=== PATIENT | female | born 1995 | race Caucasian/White ===

== ENCOUNTER → 2019-02-05 | Outpatient (CLI) | payer OTHER ==
[~2019-02-05] MED LIST: ALBU90OI INH; AMOX50SU PO; Amoxicillin500 MG PO; BENZ100A PO; CODACE30 PO; CODACEE120 PO; DIAZ5 PO; GUAI100SY; HYDPAM50 PO; LORA.5 PO; MEDR10 PO; METPHE18ER; METPHE27ER PO; METPRE4DP PO; NITR100CA PO; Naprelan375 MG PO; Naprosyn500 MG PO; PERM5TC TOP; PRAZ1 PO; PRED20 PO; PROM25; PROM25 PO; Percocet 5-3251 EACH PO; Peridex480 ML SS; RXCODACET PO; RXLORA1 PO; SERT100 PO; TRAM50 PO; Verotin-Gr Cap1 EACH PO; Zofran Odt4 MG SL; Zofran Odt8 MG SL
[2019-02-05 10:53] LABS: BASOPHILS ABSOLUTE AUTO 0.04 K/mm3 (0.00-0.23); BASOPHILS PERCENT AUTO 0 % (0-2); EOSINOPHILS ABSOLUTE AUTO 0.03 K/mm3 (0.00-0.68); EOSINOPHILS PERCENT AUTO 0 % (0-6); Hematocrit 34.2 % (33.0-51.0); Hemoglobin 12.1 g/dL (11.5-16.0); IMMATURE GRAN ABSOLUTE AUTO 0.05 K/mm3 (0.00-0.10); IMMATURE GRAN PERCENT AUTO 1 % (0-1); LYMPHOCYTES ABSOLUTE AUTO 3.19 K/mm3 (0.84-5.20); LYMPHOCYTES PERCENT AUTO 30 % (21-46); MONOCYTES ABSOLUTE AUTO 1.09 K/mm3 (0.16-1.47); MONOCYTES PERCENT AUTO 10 % (4-13); Mean Corpuscular HGB 31.2 pg (26.0-34.0); Mean Corpuscular HGB Conc 35.4 g/dL (31.5-36.5); Mean Corpuscular Volume 88 fL (80-100); Mean Platelet Volume 10.4 fL (9.1-12.4); NEUTROPHILS ABSOLUTE AUTO 6.25 K/mm3 (1.96-9.15); NEUTROPHILS PERCENT AUTO 59 % (41-73); Platelet Count 216 K/mm3 (150-400); RDW Coefficient Variation 11.7 % (11.7-14.2); RDW Standard Deviation 37.4 fL (35.1-46.3); Red Blood Cell Count 3.88 M/mm3 (3.80-5.20); White Blood Cell Count 10.65 K/mm3 (4.00-11.30)
[2019-02-05 11:16] LABS: Alanine Aminotransfer (ALT/SGP 22 U/L (12-78); Albumin, Blood 3.2 g/dL (3.4-5.0); Albumin/Globulin Ratio 0.8 (0.8-1.8); Alk Phos 68 U/L (40-126); Anion Gap 15 mmol/L (6-16); Aspartate Aminotrans (AST/SGOT 14 U/L (12-37); Bilirubin, Total 0.4 mg/dL (0.1-1.0); Blood Urea Nitrogen 8 mg/dL (8-24); Bun/Creatinine Ratio 11.4 (12.0-20.0); CO2, Blood 24 mmol/L (21-32); Calcium, Blood 8.6 mg/dL (8.5-10.1); Chloride, Blood 97 mmol/L (98-108); Globulin, Blood 3.9 g/dL (2.2-4.0); Glomerular Filtration Rate >60 (60-); Glucose, Blood 100 mg/dL (70-99); Potassium, Blood 3.3 mmol/L (3.5-5.5); Sodium, Blood 136 mmol/L (136-145); Total Protein, Blood 7.1 g/dL (6.4-8.2)
== END | disposition home or self-care (01) ==
LOC: LAB SHORT → LAB EV 10:48
PROVIDERS: General Practice
DX: N39.0 Urinary tract infection, site not specified (principal)
CPT/HCPCS: 80053; 85025; 87077; 87086; 87186

== ENCOUNTER → 2019-02-09 | Outpatient (CLI) | payer OTHER | END | disposition home or self-care (01) | LOC: LAB SHORT 02-05 11:03 → LAB EV 15:55 | DX: N39.0 Urinary tract infection, site not specified (principal) | CPT/HCPCS: 87077; 87086; 87186 ==

== ENCOUNTER 2019-06-29 00:10 | Day surgery (SDC) | payer OTHER ==
[2019-06-29] MEDS ORDERED: Ondansetron Odt8 MG MM (09:50)
== END 2019-06-29 09:58 | disposition home or self-care (01) ==
LOC: ATC 00:10
DX: O98.911 Unspecified maternal infectious and parasitic disease complicating pregnancy, first trimester (principal); O99.351 Diseases of the nervous system complicating pregnancy, first trimester; O99.511 Diseases of the respiratory system complicating pregnancy, first trimester; O99.331 Smoking (tobacco) complicating pregnancy, first trimester; O99.341 Other mental disorders complicating pregnancy, first trimester; O99.611 Diseases of the digestive system complicating pregnancy, first trimester; O99.89 Other specified diseases and conditions complicating pregnancy, childbirth and the puerperium; B96.20 Unspecified Escherichia coli [E. coli] as the cause of diseases classified elsewhere; G40.909 Epilepsy, unspecified, not intractable, without status epilepticus; M54.5 Low back pain; J45.909 Unspecified asthma, uncomplicated; F17.210 Nicotine dependence, cigarettes, uncomplicated; F32.9 Major depressive disorder, single episode, unspecified; F41.9 Anxiety disorder, unspecified; K21.9 Gastro-esophageal reflux disease without esophagitis; G43.909 Migraine, unspecified, not intractable, without status migrainosus; Z3A.00 Weeks of gestation of pregnancy not specified; Z79.2 Long term (current) use of antibiotics; Z79.899 Other long term (current) drug therapy; Z16.12 Extended spectrum beta lactamase (ESBL) resistance; Z88.5 Allergy status to narcotic agent; Z88.6 Allergy status to analgesic agent; Z91.013 Allergy to seafood; Z91.040 Latex allergy status
CPT/HCPCS: 96372; J1335; J2001

== ENCOUNTER 2019-06-30 00:15 | Day surgery (SDC) | payer OTHER ==
[~2019-06-30 00:15] MED LIST changes: +Ondansetron Odt8 MG MM
== END 2019-06-30 11:26 | disposition home or self-care (01) ==
LOC: ATC 00:15
DX: O98.911 Unspecified maternal infectious and parasitic disease complicating pregnancy, first trimester (principal); O99.351 Diseases of the nervous system complicating pregnancy, first trimester; O99.511 Diseases of the respiratory system complicating pregnancy, first trimester; O99.331 Smoking (tobacco) complicating pregnancy, first trimester; O99.611 Diseases of the digestive system complicating pregnancy, first trimester; O99.341 Other mental disorders complicating pregnancy, first trimester; O99.89 Other specified diseases and conditions complicating pregnancy, childbirth and the puerperium; B96.20 Unspecified Escherichia coli [E. coli] as the cause of diseases classified elsewhere; G40.909 Epilepsy, unspecified, not intractable, without status epilepticus; J45.909 Unspecified asthma, uncomplicated; F17.210 Nicotine dependence, cigarettes, uncomplicated; K21.9 Gastro-esophageal reflux disease without esophagitis; G43.909 Migraine, unspecified, not intractable, without status migrainosus; F32.9 Major depressive disorder, single episode, unspecified; M54.5 Low back pain; Z16.12 Extended spectrum beta lactamase (ESBL) resistance; Z79.2 Long term (current) use of antibiotics; Z79.899 Other long term (current) drug therapy; Z88.5 Allergy status to narcotic agent; Z88.6 Allergy status to analgesic agent; Z88.8 Allergy status to other drugs, medicaments and biological substances; Z91.013 Allergy to seafood; Z91.040 Latex allergy status
CPT/HCPCS: 96372; J2001

== ENCOUNTER 2019-07-01 00:16 | Day surgery (SDC) | payer OTHER | END 2019-07-01 11:15 | disposition home or self-care (01) | LOC: ATC 00:16 | DX: O98.911 Unspecified maternal infectious and parasitic disease complicating pregnancy, first trimester (principal); O99.351 Diseases of the nervous system complicating pregnancy, first trimester; O99.511 Diseases of the respiratory system complicating pregnancy, first trimester; O99.331 Smoking (tobacco) complicating pregnancy, first trimester; O99.611 Diseases of the digestive system complicating pregnancy, first trimester; O99.341 Other mental disorders complicating pregnancy, first trimester; O99.89 Other specified diseases and conditions complicating pregnancy, childbirth and the puerperium; B96.20 Unspecified Escherichia coli [E. coli] as the cause of diseases classified elsewhere; G40.909 Epilepsy, unspecified, not intractable, without status epilepticus; M54.5 Low back pain; J45.909 Unspecified asthma, uncomplicated; F17.210 Nicotine dependence, cigarettes, uncomplicated; G43.909 Migraine, unspecified, not intractable, without status migrainosus; K21.9 Gastro-esophageal reflux disease without esophagitis; F32.9 Major depressive disorder, single episode, unspecified; F41.9 Anxiety disorder, unspecified; Z16.12 Extended spectrum beta lactamase (ESBL) resistance; Z79.2 Long term (current) use of antibiotics; Z79.899 Other long term (current) drug therapy; Z88.5 Allergy status to narcotic agent; Z88.6 Allergy status to analgesic agent; Z88.8 Allergy status to other drugs, medicaments and biological substances; Z91.013 Allergy to seafood; Z91.040 Latex allergy status | CPT/HCPCS: 96372; J1335 ==

== ENCOUNTER 2019-07-02 02:07 | Day surgery (SDC) | payer OTHER | END 2019-07-02 11:22 | disposition home or self-care (01) | LOC: ATC 02:07 | DX: O98.911 Unspecified maternal infectious and parasitic disease complicating pregnancy, first trimester (principal); O99.351 Diseases of the nervous system complicating pregnancy, first trimester; O99.511 Diseases of the respiratory system complicating pregnancy, first trimester; O99.331 Smoking (tobacco) complicating pregnancy, first trimester; O99.611 Diseases of the digestive system complicating pregnancy, first trimester; O99.341 Other mental disorders complicating pregnancy, first trimester; O99.89 Other specified diseases and conditions complicating pregnancy, childbirth and the puerperium; B96.20 Unspecified Escherichia coli [E. coli] as the cause of diseases classified elsewhere; G40.909 Epilepsy, unspecified, not intractable, without status epilepticus; M54.5 Low back pain; J45.909 Unspecified asthma, uncomplicated; F17.210 Nicotine dependence, cigarettes, uncomplicated; G43.909 Migraine, unspecified, not intractable, without status migrainosus; K21.9 Gastro-esophageal reflux disease without esophagitis; F41.9 Anxiety disorder, unspecified; F32.9 Major depressive disorder, single episode, unspecified; Z16.12 Extended spectrum beta lactamase (ESBL) resistance; Z79.2 Long term (current) use of antibiotics; Z79.899 Other long term (current) drug therapy; Z88.5 Allergy status to narcotic agent; Z88.6 Allergy status to analgesic agent; Z88.8 Allergy status to other drugs, medicaments and biological substances; Z91.013 Allergy to seafood; Z91.040 Latex allergy status | CPT/HCPCS: 96372; J1335; J2001 ==

== ENCOUNTER 2019-07-03 08:27 | Day surgery (SDC) | payer OTHER | END 2019-07-03 09:06 | disposition home or self-care (01) | LOC: ATC 08:27 | DX: O98.911 Unspecified maternal infectious and parasitic disease complicating pregnancy, first trimester (principal); O99.351 Diseases of the nervous system complicating pregnancy, first trimester; O99.511 Diseases of the respiratory system complicating pregnancy, first trimester; O99.331 Smoking (tobacco) complicating pregnancy, first trimester; O99.611 Diseases of the digestive system complicating pregnancy, first trimester; O99.341 Other mental disorders complicating pregnancy, first trimester; O99.89 Other specified diseases and conditions complicating pregnancy, childbirth and the puerperium; B96.20 Unspecified Escherichia coli [E. coli] as the cause of diseases classified elsewhere; G40.909 Epilepsy, unspecified, not intractable, without status epilepticus; M54.5 Low back pain; J45.909 Unspecified asthma, uncomplicated; F17.210 Nicotine dependence, cigarettes, uncomplicated; G43.909 Migraine, unspecified, not intractable, without status migrainosus; K21.9 Gastro-esophageal reflux disease without esophagitis; F32.9 Major depressive disorder, single episode, unspecified; F41.9 Anxiety disorder, unspecified; Z16.12 Extended spectrum beta lactamase (ESBL) resistance; Z79.2 Long term (current) use of antibiotics; Z79.899 Other long term (current) drug therapy; Z88.5 Allergy status to narcotic agent; Z88.6 Allergy status to analgesic agent; Z88.8 Allergy status to other drugs, medicaments and biological substances; Z91.013 Allergy to seafood; Z91.040 Latex allergy status | CPT/HCPCS: 96372; J1335 ==

== ENCOUNTER 2019-07-04 08:09 | Day surgery (SDC) | payer OTHER | END 2019-07-04 08:33 | disposition home or self-care (01) | LOC: ATC 08:09 | DX: O98.911 Unspecified maternal infectious and parasitic disease complicating pregnancy, first trimester (principal); O99.351 Diseases of the nervous system complicating pregnancy, first trimester; O99.511 Diseases of the respiratory system complicating pregnancy, first trimester; O99.331 Smoking (tobacco) complicating pregnancy, first trimester; O99.341 Other mental disorders complicating pregnancy, first trimester; O99.611 Diseases of the digestive system complicating pregnancy, first trimester; O99.89 Other specified diseases and conditions complicating pregnancy, childbirth and the puerperium; B96.20 Unspecified Escherichia coli [E. coli] as the cause of diseases classified elsewhere; G40.909 Epilepsy, unspecified, not intractable, without status epilepticus; G43.909 Migraine, unspecified, not intractable, without status migrainosus; J45.909 Unspecified asthma, uncomplicated; F17.210 Nicotine dependence, cigarettes, uncomplicated; M54.5 Low back pain; F41.9 Anxiety disorder, unspecified; F32.9 Major depressive disorder, single episode, unspecified; K21.9 Gastro-esophageal reflux disease without esophagitis; Z79.2 Long term (current) use of antibiotics; Z79.899 Other long term (current) drug therapy; Z88.5 Allergy status to narcotic agent; Z88.6 Allergy status to analgesic agent; Z88.8 Allergy status to other drugs, medicaments and biological substances; Z91.013 Allergy to seafood; Z91.040 Latex allergy status | CPT/HCPCS: 96372; J1335 ==

== ENCOUNTER 2019-07-05 00:11 | Day surgery (SDC) | payer OTHER | END 2019-07-05 11:10 | disposition home or self-care (01) | LOC: ATC 00:11 | DX: O98.911 Unspecified maternal infectious and parasitic disease complicating pregnancy, first trimester (principal); O99.351 Diseases of the nervous system complicating pregnancy, first trimester; O99.511 Diseases of the respiratory system complicating pregnancy, first trimester; O99.331 Smoking (tobacco) complicating pregnancy, first trimester; O09.11 Supervision of pregnancy with history of ectopic pregnancy, first trimester; O99.341 Other mental disorders complicating pregnancy, first trimester; O99.611 Diseases of the digestive system complicating pregnancy, first trimester; O99.89 Other specified diseases and conditions complicating pregnancy, childbirth and the puerperium; B96.20 Unspecified Escherichia coli [E. coli] as the cause of diseases classified elsewhere; G40.909 Epilepsy, unspecified, not intractable, without status epilepticus; G43.909 Migraine, unspecified, not intractable, without status migrainosus; J45.909 Unspecified asthma, uncomplicated; F17.210 Nicotine dependence, cigarettes, uncomplicated; F32.9 Major depressive disorder, single episode, unspecified; F41.9 Anxiety disorder, unspecified; K21.9 Gastro-esophageal reflux disease without esophagitis; M54.5 Low back pain; O28.3 Abnormal ultrasonic finding on antenatal screening of mother; O35.1XX0 Maternal care for (suspected) chromosomal abnormality in fetus, not applicable or unspecified; Z16.12 Extended spectrum beta lactamase (ESBL) resistance; Z79.2 Long term (current) use of antibiotics; Z79.899 Other long term (current) drug therapy; Z88.5 Allergy status to narcotic agent; Z88.6 Allergy status to analgesic agent; Z88.8 Allergy status to other drugs, medicaments and biological substances; Z91.040 Latex allergy status; Z91.013 Allergy to seafood | CPT/HCPCS: 36415; 96372; J1335; J2001 ==

== ENCOUNTER → 2019-07-13 | Outpatient (CLI) | payer OTHER ==
[2019-07-14 10:36] LABS: Candida species (DNA Probe) Positive (NEGATIVE); G. vaginalis (DNA Probe) Positive (NEGATIVE); T. vaginalis (DNA Probe) Negative (NEGATIVE)
== END | disposition home or self-care (01) ==
LOC: LAB SHORT 10:00 → LAB 10:00
PROVIDERS: Obstetrics & Gynecology
DX: N76.0 Acute vaginitis (principal)
CPT/HCPCS: 87480; 87510; 87660

== ENCOUNTER → 2019-11-15 | Outpatient (CLI) | payer OTHER | END | disposition home or self-care (01) | LOC: LAB SHORT 15:00 → LAB 15:00 | DX: Z34.03 Encounter for supervision of normal first pregnancy, third trimester (principal) | CPT/HCPCS: 87086 ==

== ENCOUNTER → 2024-02-10 | Outpatient (CLI) | payer OTHER ==
[~2024-02-10] MED LIST changes: +IBUP800 PO
== END ==
LOC: LAB 17:13 → LAB SHORT 17:13
DX: O09.892 Supervision of other high risk pregnancies, second trimester (principal)
CPT/HCPCS: 87081; 87150

== ENCOUNTER 2024-03-11 09:44 | Inpatient (IN) | payer OTHER ==
[~2024-03-11] VITALS: Ht 170.2 cm; Wt 80.9 kg
[2024-03-11] VITALS (9 sets, daily range): BP systolic 90–127; BP diastolic 55–81
[2024-03-11] MEDS ORDERED: Methylergonovine Maleate 0.2MG / ML 1ML Amp IM PRN ×2 (09:50→14:05)
[2024-03-11] MEDS ORDERED: Misoprostol 200 MCG Tab BC PRN ×2 (09:50→14:15)
[2024-03-11] MEDS ORDERED: Misoprostol 200 MCG Tab PR PRN (09:50)
[2024-03-11] MEDS ORDERED: Oxytocin 10 Unit / ML Vial IM PRN (09:50)
[2024-03-11] MEDS ORDERED: Lactated Ringer's 1,000 ML IV SCH ×4 (09:50→14:00)
[2024-03-11] MEDS ORDERED: Lactated Ringer's 1,000 ML IV PRN (09:50)
[2024-03-11] MEDS ORDERED: Ondansetron HCl 2 MG / ML 2ML Vial IV PRN (09:50)
[2024-03-11] MEDS ORDERED: Carboprost Tromethamine 250 MCG/ML 1ML Amp IM PRN ×2 (09:50→14:05)
[2024-03-11] MEDS ORDERED: OXYTOCIN/RINGER'S LACTATE 500 ML IV PRN (09:50)
[2024-03-11] MEDS ORDERED: Acetaminophen 500 MG Tab PO PRN ×2 (09:50→14:00)
[2024-03-11] MEDS ORDERED: Calcium Carbonate 500 MG Tab Chew PO PRN (09:50)
[2024-03-11] MEDS ORDERED: ePHEDrine Sulfate 50 MG/ML 1ML Injection XX PRN (09:55)
[2024-03-11] MEDS ORDERED: FentaNYL 2mcg/ml-Bup 0.1% Epd 250 ML EPI PRN (09:55)
[2024-03-11] MEDS ORDERED: OXYTOCIN/RINGER'S LACTATE 500 ML IV SCH ×2 (09:55→13:55)
[2024-03-11] MEDS ORDERED: FentaNYL Citrate 50 MCG/ML 2 ML Injection IV PRN (09:55)
[2024-03-11] MEDS ORDERED: Tranexamic Acid 100 ML IV SCH (10:00)
[2024-03-11 10:18] LABS: BASOPHILS ABSOLUTE AUTO 0.01 K/mm3 (0.00-0.23); BASOPHILS PERCENT AUTO 0 % (0-2); EOSINOPHILS ABSOLUTE AUTO 0.03 K/mm3 (0.00-0.68); EOSINOPHILS PERCENT AUTO 1 % (0-6); Hematocrit 34.7 % (33.0-51.0); Hemoglobin 12.1 g/dL (11.5-16.0); IMMATURE GRAN ABSOLUTE AUTO 0.03 K/mm3 (0.00-0.10); IMMATURE GRAN PERCENT AUTO 1 % (0-1); LYMPHOCYTES ABSOLUTE AUTO 1.47 K/mm3 (0.84-5.20); LYMPHOCYTES PERCENT AUTO 24 % (21-46); MONOCYTES ABSOLUTE AUTO 0.38 K/mm3 (0.16-1.47); MONOCYTES PERCENT AUTO 6 % (4-13); Mean Corpuscular HGB 32.1 pg (26.0-34.0); Mean Corpuscular HGB Conc 34.9 g/dL (31.5-36.5); Mean Corpuscular Volume 92 fL (80-100); Mean Platelet Volume 11.1 fL (9.1-12.4); NEUTROPHILS PERCENT AUTO 69 % (41-73); Platelet Count 134 K/mm3 (150-400); RDW Coefficient Variation 14.1 % (11.7-14.2); RDW Standard Deviation 47.3 fL (35.1-46.3); Red Blood Cell Count 3.77 M/mm3 (3.80-5.20); White Blood Cell Count 6.22 K/mm3 (4.00-11.30)
[2024-03-11] MEDS ORDERED: Rho(D) Immune Globulin 300 MCG / SYR IM SCH (13:55)
[2024-03-11] MEDS ORDERED: Ibuprofen 400 MG Tab PO PRN (14:00)
[2024-03-11] MEDS ORDERED: FLU VACC TS2024-25(6MOS UP)/PF 45 MCG/0.5 ML SYRINGE IM SCH (14:00)
[2024-03-11] MEDS ORDERED: Ketorolac Tromethamine 30mg Vial IV PRN (14:00)
[2024-03-11] MEDS ORDERED: Docusate Sodium 100 MG Cap PO PRN (14:00)
[2024-03-11] MEDS ORDERED: Witch Hazel/Glycerin PADS TOP PRN (14:00)
[2024-03-11] MEDS ORDERED: Lanolin Cream TOP PRN (14:05)
[2024-03-11] MEDS ORDERED: Benzocaine Topical Anesthetic Spray 60GM TOP PRN (14:05)
[2024-03-11] MEDS ORDERED: OxyCODONE HCL 5 MG TAB PO PRN (14:05)
[2024-03-11] MEDS ORDERED: Measles/Mumps/Rubella Vaccine 0.5 ML Vial SC SCH (14:05)
[2024-03-12 03:59] VITALS: BP 83/47
[2024-03-12 04:00] VITALS: BP 86/50
[2024-03-12 05:11] VITALS: BP 95/58
[2024-03-12 08:23] VITALS: BP 97/58
[2024-03-12] MEDS ORDERED: Prenatal Vit/FE Fumarate/FA 1 Tab PO SCH (09:00)
[2024-03-12 11:37] VITALS: BP 103/56
== END 2024-03-12 14:50 | disposition home or self-care (01) | DRG 806 ==
LOC: OBS 09:44 → BC 09:46 → OBS 09:47 → BC 10:04
PROVIDERS: ADMIT Obstetrics & Gynecology
PROC: 10E0XZZ Delivery of Products of Conception, External Approach (ICD-10-PCS; principal; 2024-03-11)
PROC: 3E033VJ Introduction of Other Hormone into Peripheral Vein, Percutaneous Approach (ICD-10-PCS; 2024-03-11)
PROC: 10907ZC Drainage of Amniotic Fluid, Therapeutic from Products of Conception, Via Natural or Artificial Opening (ICD-10-PCS; 2024-03-11)
DX: O24.410 Gestational diabetes mellitus in pregnancy, diet controlled (principal); O36.0930 Maternal care for other rhesus isoimmunization, third trimester, not applicable or unspecified; Z37.0 Single live birth; O99.12 Other diseases of the blood and blood-forming organs and certain disorders involving the immune mechanism complicating childbirth; O99.354 Diseases of the nervous system complicating childbirth; Z3A.40 40 weeks gestation of pregnancy; O71.82 Other specified trauma to perineum and vulva; O48.0 Post-term pregnancy; O99.344 Other mental disorders complicating childbirth; F32.A Depression, unspecified; F41.9 Anxiety disorder, unspecified; O99.52 Diseases of the respiratory system complicating childbirth; J45.909 Unspecified asthma, uncomplicated; G43.909 Migraine, unspecified, not intractable, without status migrainosus; G89.29 Other chronic pain; M54.9 Dorsalgia, unspecified; O99.334 Smoking (tobacco) complicating childbirth; F17.290 Nicotine dependence, other tobacco product, uncomplicated; D69.59 Other secondary thrombocytopenia
CPT/HCPCS: 36415; 82947; 85025; 85460; 86850; 86900; 86901; 86922; A9270; J1885; J2405; J2590; J2791; J3010; J7120

== ENCOUNTER 2025-01-13 06:12 | Day surgery (SDC) | payer OTHER ==
[~2025-01-13] VITALS: Ht 157.5 cm; Wt 70.3 kg
[2025-01-13] VITALS (13 sets, daily range): BP systolic 93–115; BP diastolic 46–92
[2025-01-13 06:56] LABS: BASOPHILS ABSOLUTE AUTO 0.04 K/mm3 (0.00-0.23); BASOPHILS PERCENT AUTO 1 % (0-2); EOSINOPHILS ABSOLUTE AUTO 0.10 K/mm3 (0.00-0.68); EOSINOPHILS PERCENT AUTO 2 % (0-6); Hematocrit 41.1 % (33.0-51.0); Hemoglobin 14.3 g/dL (11.5-16.0); IMMATURE GRAN ABSOLUTE AUTO 0.01 K/mm3 (0.00-0.10); IMMATURE GRAN PERCENT AUTO 0 % (0-1); LYMPHOCYTES ABSOLUTE AUTO 1.95 K/mm3 (0.84-5.20); LYMPHOCYTES PERCENT AUTO 32 % (21-46); MONOCYTES ABSOLUTE AUTO 0.41 K/mm3 (0.16-1.47); MONOCYTES PERCENT AUTO 7 % (4-13); Mean Corpuscular HGB Conc 34.8 g/dL (31.5-36.5); Mean Corpuscular Volume 90 fL (80-100); NEUTROPHILS ABSOLUTE AUTO 3.62 K/mm3 (1.96-9.15); NEUTROPHILS PERCENT AUTO 59 % (41-73); NRBC ABSOLUTE 0.00 K/mm3 (0.00-0.02); NRBC Auto 0.0 /100 WBC (0.0-0.2); Platelet Count 177 K/mm3 (150-400); RDW Coefficient Variation 11.9 % (11.7-14.2); RDW Standard Deviation 39.3 fL (35.1-46.3)
[2025-01-13] MEDS ORDERED: Midazolam HCl 1MG / ML 2ML Vial ONE ×2 (07:19→08:42)
[2025-01-13] MEDS ORDERED: Metoclopramide HCl 5MG / ML 2ML Vial IV PRN (07:20)
[2025-01-13] MEDS ORDERED: Midazolam HCl 1MG / ML 2ML Vial IV PRN (07:20)
[2025-01-13] MEDS ORDERED: Morphine Sulfate 4 MG/1 ML Injection IV PRN (07:20)
[2025-01-13] MEDS ORDERED: FentaNYL Citrate 50 MCG/ML 2 ML Injection ONE ×2 (07:22→08:42)
[2025-01-13] MEDS ORDERED: Albuterol 2.5 MG/3 ML VIAL INH PRN (07:25)
[2025-01-13] MEDS ORDERED: FentaNYL Citrate 50 MCG/ML 2 ML Injection IV PRN (07:25)
[2025-01-13] MEDS ORDERED: HYDROmorphone HCl/Pf 1MG SYR IV PRN (07:25)
[2025-01-13] MEDS ORDERED: Bupivacaine 0.5% W/EPI 1:200000 SDV 30 ML Vial ONE (07:25)
[2025-01-13] MEDS ORDERED: Ondansetron HCl 2 MG / ML 2ML Vial IV PRN (07:25)
--- NOTE | 2025-01-13 07:26 | NUR ---
History, Chart, Medications and Allergies reviewed before start of procedure. Patient confirms NPO status and agrees with scheduled surgery. Pre-Op teaching done. Pt verbalizes understanding. Lungs clear T/O to Auscultation.
[2025-01-13] MEDS ORDERED: Ketorolac Tromethamine 30mg Vial ONE (07:44)
[2025-01-13] MEDS ORDERED: Dexamethasone Sod Phos 10 MG/ML 1ML VIAL ONE (07:45)
[2025-01-13] MEDS ORDERED: Rocuronium Bromide 10 MG/ML 5ML Injection IV ONE (07:45)
[2025-01-13] MEDS ORDERED: Ondansetron HCl 2 MG / ML 2ML Vial ONE (07:45)
[2025-01-13] MEDS ORDERED: Sugammadex Sodium 200 MG/2ML SDV (100 MG/ML) ONE (08:27)
[2025-01-13] MEDS ORDERED: OxyCODONE 5 mg/Acetamin 325 mg TABLET PO PRN (08:50)
[2025-01-13] MEDS ORDERED: Rho(D) Immune Globulin 300 MCG / SYR IV ONE (09:45)
--- NOTE | 2025-01-13 10:16 | NUR ---
Discharge instructions reviewed with patient. Patient verbalizes understanding. Copy given to patient to take home. Prescription sent electonically. Dressings c/d/i. Patient States Post-Procedure ride home has been arranged. Discharged via wheelchair to private car for ride home.
== END 2025-01-13 10:20 | disposition home or self-care (01) ==
LOC: ORSCMMR 06:12 → ORD 09:00 → ORSCMMR 10:20
PROVIDERS: Obstetrics & Gynecology
PROC: 0UT54ZZ Resection of Right Fallopian Tube, Percutaneous Endoscopic Approach (ICD-10-PCS; principal; 2025-01-13 07:30)
DX: O00.101 Right tubal pregnancy without intrauterine pregnancy (principal)
CPT/HCPCS: 85025; 86850; 86900; 86901; 88305; J1100; J1885; J2250; J2405; J2704; J2791; J3010; J7120